=== PATIENT | female | born 1955 | race Caucasian/White ===

== ENCOUNTER 2021-01-12 12:23 | Emergency (ER) | payer SELFPAY ==
--- NOTE | 2021-01-12 12:49 | EDM.PDOC ---
ED HPI GENERAL MEDICAL PROBLEM - General Chief Complaint: Flank Pain Stated Complaint: KIDNEY PAIN Time Seen by Provider: 01/12/21 12:40 - History of Present Illness INITIAL COMMENTS - FREE TEXT/NARRATIVE: 65-year-old female presents the emergency room with what she believes is kidney stone pain. Patient has had similar problems like this with kidney stones last one was about a year and a half ago. Patient is from out of town and is passing through. Patient denies any burning or frequency with urination no fevers or chills her pain is predominantly on her right side. Pain was fairly sudden onset at about 3 AM this morning and has not really improved. She had some nausea with this as well. Patient is treated for type 2 diabetes. She is also treated for hyper tension hyperlipidemia and depression. Right Flank Pain Score (Numeric/FACES): 10 - Related Data Allergies Allergy/AdvReac Type Severity Reaction Status Date / Time codeine Allergy Stomach Verified 01/12/21 12:38 Ache morphine Allergy Vomiting Verified 01/12/21 12:38 Home Meds: Home Meds Diltiazem HCl [Diltiazem 24Hr Cd] 180 mg PO DAILY 01/12/21 [History] Hydrocodone/Acetaminophen [HYDROcodone-Acetaminophen 5-325 MG] 1 - 2 each PO Q6H PRN #30 tab 01/12/21 [Rx] Insulin Glargine,Hum.Rec.Anlog [Basaglar Kwikpen U-100] 60 unit SQ BEDTIME 01/12/21 [History] Omeprazole 20 mg PO DAILY 01/12/21 [History] Ondansetron [Ondansetron ODT] 4 mg PO Q6H PRN #12 tab.rapdis 01/12/21 [Rx] Sertraline [Zoloft] 50 mg PO DAILY 01/12/21 [History] Simvastatin 80 mg PO DAILY 01/12/21 [History] Tamsulosin HCl [Flomax] 0.4 mg PO DAILY #7 capsule 01/12/21 [Rx] sitaGLIPtin Phos/Metformin HCl [Janumet 50-1,000 MG] 1,000 each PO BID 01/12/21 [History] traZODone 50 mg PO BEDTIME 01/12/21 [History] ED ROS GENERAL - Review of Systems Review Of Systems: See Below Constitutional: Reports: No Symptoms. Denies: Fever, Chills HEENT: Reports: No Symptoms Respiratory: Reports: No Symptoms Cardiovascular: Reports: No Symptoms Endocrine: Reports: No Symptoms GI/Abdominal: Reports: Abdominal Pain, Nausea. Denies: Constipation, Diarrhea, Vomiting : Reports: Flank Pain. Denies: Discharge, Dysuria, Frequency, Urgency Musculoskeletal: Reports: No Symptoms Skin: Reports: No Symptoms Neurological: Reports: No Symptoms ED EXAM, GENERAL - Physical Exam Exam: See Below Exam Limited By: No Limitations General Appearance: Alert, Moderate Distress (The patient is uncomfortable and this is obvious she is tearing and trying to get comfortable.) Head: Atraumatic, Normocephalic Neck: Normal Inspection, Supple, Non-Tender, Full Range of Motion. No: Lymphadenopathy (L), Lymphadenopathy (R) Respiratory/Chest: No Respiratory Distress, Lungs Clear, Normal Breath Sounds Cardiovascular: Regular Rate, Rhythm, No Edema, No Murmur GI/Abdominal: Normal Bowel Sounds, Soft, Other (Some significant right-sided abdominal discomfort not necessarily aggravated with palpation) Back Exam: Normal Inspection. No: CVA Tenderness (L), CVA Tenderness (R) Extremities: Normal Inspection, No Pedal Edema Neurological: Alert, Oriented, Normal Cognition Course - Vital Signs Last Recorded V/S: Last Vital Signs Temp 37.1 C 01/12/21 12:35 Pulse 102 H 01/12/21 12:35 Resp 16 01/12/21 12:35 BP 123/104 H 01/12/21 12:35 Pulse Ox 95 01/12/21 12:35 - Orders/Labs/Meds Orders: Active Orders 24 hr Category Date Time Status CULTURE URINE [MREF] Stat Lab 01/12/21 13:13 Received Labs: Laboratory Tests 01/12/21 01/12/21 01/12/21 Range/Units 13:10 13:10 13:13 WBC 11.81 H (3.98-10.04) K/mm3 RBC 5.15 (3.98-5.22) M/mm3 Hgb 12.3 (11.2-15.7) gm/dl Hct 39.0 (34.1-44.9) % MCV 75.7 L (79.4-94.8) fl MCH 23.9 L (25.6-32.2) pg MCHC 31.5 L (32.2-35.5) g/dl RDW Std Deviation 43.0 (36.4-46.3) fL Plt Count 333 (182-369) K/mm3 MPV 10.0 (9.4-12.3) fl Neut % (Auto) 87.9 H (34.0-71.1) % Lymph % (Auto) 7.5 L (19.3-51.7) % Bailey % (Auto) 4.0 L (4.7-12.5) % Eos % (Auto) 0.1 L (0.7-5.8) Baso % (Auto) 0.3 (0.1-1.2) % Neut # (Auto) 10.40 H (1.56-6.13) K/mm3 Lymph # (Auto) 0.88 L (1.18-3.74) K/mm3 Bailey # (Auto) 0.47 H (0.24-0.36) K/mm3 Eos # (Auto) 0.01 L (0.04-0.36) K/mm3 Baso # (Auto) 0.03 (0.01-0.08) K/mm3 Sodium 143 (136-145) mEq/L Potassium 3.9 (3.5-5.1) mEq/L Chloride 105 (98-107) mEq/L Carbon Dioxide 22 (21-32) mEq/L Anion Gap 19.9 H (5-15) BUN 20 H (7-18) mg/dL Creatinine 1.1 H (0.55-1.02) mg/dL Est Cr Clr Drug Dosing 52.12 mL/min Estimated GFR (MDRD) 50 (>60) mL/min BUN/Creatinine Ratio 18.2 H (14-18) Glucose 95 (70-99) mg/dL Calcium 9.2 (8.5-10.1) mg/dL Total Bilirubin 0.4 (0.2-1.0) mg/dL AST 26 (15-37) U/L ALT 19 (14-59) U/L Alkaline Phosphatase 104 (46-116) U/L Total Protein 7.5 (6.4-8.2) g/dl Albumin 4.0 (3.4-5.0) g/dl Globulin 3.5 gm/dL Albumin/Globulin Ratio 1.1 (1-2) Urine Color Jen H (Yellow) Urine Appearance Cloudy H (Clear) Urine pH 6.5 (5.0-8.0) Ur Specific Lingle 1.020 (1.005-1.030) Urine Protein 2+ H (Negative) Urine Glucose (UA) Negative (Negative) Urine Ketones Negative (Negative) Urine Occult Blood 3+ H (Negative) Urine Nitrite Negative (Negative) Urine Bilirubin Negative (Negative) Urine Urobilinogen 0.2 (0.2-1.0) Ur Leukocyte Esterase Trace H (Negative) Urine RBC >100 H (0-5) /hpf Urine WBC 0-5 (0-5) /hpf Ur Epithelial Cells 0-5 (0-5) /hpf Urine Bacteria Few (FEW) /hpf Urine Mucus Few (FEW) /hpf Meds: Medications Discontinued Medications Generic Name Dose Route Start Last Admin Trade Name Freq PRN Reason Stop Dose Admin Fentanyl 50 mcg 01/12/21 12:58 01/12/21 13:12 Fentanyl 100 Mcg/2 Ml Sdv IVPUSH 01/12/21 12:59 50 mcg ONETIME ONE Administration Ondansetron HCl 4 mg 01/12/21 12:58 01/12/21 13:12 Ondansetron 4 Mg/2 Ml Sdv IVPUSH 01/12/21 12:59 4 mg ONETIME ONE Administration - Re-Assessments/Exams Free Text/Narrative Re-Assessment/Exam: 01/12/21 16:38 Urinalysis consistent with some microscopic hematuria no significant signs of infection. Mild elevation of white count. CT KUB was obtained which shows a 6.8 mm stone in the mid ureter on the right. She also has nonobstructing stones in both kidneys. The patient is visiting here from out of town she will fly home on Saturday. Have advised her to make an appointment for Saturday with her regular physician back home. We will provide her with with labs and CT report. Discussed pros and cons of Flomax and the patient would like to give this a try and the patient understands that some literature suggest that just does not help. Departure - Departure Time of Disposition: 16:41 Disposition: Home, Self-Care 01 Clinical Impression: Kidney stone on right side - Discharge Information Referrals: PCP,Not In Area [Primary Care Provider] - Forms: ED Department Discharge Additional Instructions: Seek medical attention if you have any worsening questions or problems. Tomorrow call your regular physician back home and try and get an appointment scheduled for Saturday. You have been started on hydrocodone take 1 or 2 every 6 hours as needed for pain. Allow 12 hours after using this medication before driving or returning to work. You have been given Zofran take 1 every 6 hours as needed for nausea and vomiting. You have also been given Flomax take 1 daily it may help facilitate passage of the kidney stone. All 3 your prescriptions have been sent electronically to the [place] pharmacy in the [facility] [place]. Sepsis Event Note (ED) - Evaluation Sepsis Screening Result: No Definite Risk - Focused Exam Vital Signs: Vital Signs Temp Pulse Resp BP Pulse Ox 01/12/21 12:35 37.1 C 102 H 16 123/104 H 95 - My Orders Last 24 Hours: My Active Orders 01/12/21 13:13 CULTURE URINE [MREF] Stat - Assessment/Plan Last 24 Hours: My Active Orders 01/12/21 13:13 CULTURE URINE [MREF] Stat
[2021-01-12] MEDS ORDERED: fentaNYL 100 MCG/2 ML SDV IVPUSH ONE (12:58)
[2021-01-12] MEDS ORDERED: Ondansetron 4 MG/2 ML SDV IVPUSH ONE (12:58)
--- NOTE | 2021-01-12 13:24 | CT ---
CT abdomen and pelvis Technique: Multiple axial sections were obtained from above the dome of the diaphragm inferiorly through the pubic symphysis. Intravenous contrast and oral contrast were not utilized. Study has been performed as a ureteral stone protocol. Comparison: No previous abdomen or pelvis imaging is available. Findings: Proximal right ureter and pelvicalyceal system on the right side are dilated. Inflammatory change is seen around the right kidney and right renal pelvis. These findings are caused by a stone within the mid right ureter located approximately 10 cm from the UVJ. This calculus measures 6.8 mm in size. No other ureteral calcifications are seen. Scattered nonobstructing calculi are seen within both kidneys. Largest calculus measures 8.5 mm. Visualized lung bases show nothing acute. Noncontrast appearance of the liver shows no focal abnormality. Spleen size is normal. Adrenal glands show no nodule. Surgical clips are seen from prior cholecystectomy. Abdominal aorta shows atherosclerotic calcification which continues into the iliac vessels. No aneurysm is seen. No retroperitoneal adenopathy or mesenteric abnormalities are seen. No pelvic mass or adenopathy is noted. Minimal sigmoid diverticuli are seen. Appendix is not visualized. Bone window settings were reviewed which show no acute osseous abnormality. Impression: 1. Nonobstructing renal calculi on both sides. 2. Findings compatible with obstructing right mid ureteral calculus measuring 6.8 mm. 3. Other findings which are believed to be chronic as noted above. Diagnostic code #3
== END 2021-01-12 17:20 | disposition home or self-care (01) ==
LOC: JD.ED 12:23
DX: N20.2 Calculus of kidney with calculus of ureter (principal); Z88.5 Allergy status to narcotic agent
CPT/HCPCS: 36415; 74176; 80053; 81001; 85025; 87086; 96374; 96375; 99284; J2405; J3010